=== PATIENT | male | born 1945 | race Caucasian/White ===

== ENCOUNTER 2023-01-31 08:42 | Outpatient (CLI) | payer MEDICARE, SELFPAY | END 2023-01-31 08:43 | disposition home or self-care (01) | LOC: ANHLAB 08:51 | PROVIDERS: Visit Provider Nurse Practitioner Family | DX: R53.83 Other fatigue (principal) | CPT/HCPCS: 36415; 82607 ==

== ENCOUNTER 2023-03-03 08:04 | Outpatient (CLI) | payer MEDICARE, SELFPAY ==
--- NOTE | 2023-03-13 17:25 | WPDHOMESLEEP ---
Sleep Study - Home Unattended Date of Study: 03/03/23 Ordering Provider: Damir Mccarty APRN Interpreting Provider: Ericka Coon MD Home Sleep Study Type: Watch PAT Height: 1.78 m Weight: 133.81 kg Body Mass Index: 42.3 Neck Circumference (inches): 17 [place]: 15 Reason for Sleep Study Hypersomnolence Sleep History Placido Meng is a 77-year-old man with hypersomnolence for the last 12 years. His medical comorbidities include hypertension, chronic kidney disease, chronic thromboembolic disease, history of nephrectomy and prostate cancer. He occasionally awakens from sleep short of breath. He has a history of blood clots in his left leg. The left leg swells during the day. At night when the of leg rests, he has frequent trips to the bathroom. He has used a mouth guard in the past. He occasionally wakes at night with heartburn, belching or coughing.??He frequently snores and it is frequently loud enough that others complain about it. He rarely has difficulty sleeping when he has a cold. He Rarely wakes up gasping for breath during the night. He occasionally has breathing problems at night. He occasional sweats excessively at night. He rarely notices his heart pounding or beating irregularly during the night. He frequently falls asleep during the day. He occasionally falls asleep involuntarily, rarely falls asleep while driving. He never experiences loss of muscle tone with strong emotion. He rarely has daytime difficulties due to excessive sleepiness. He never feels paralyzed on waking or falling asleep. He occasionally has vivid dreamlike scenes upon awakening or falling asleep. He never feels afraid to go to sleep. He occasionally has nightmares. He occasionally recalls his dreams. He rarely has thoughts racing through his mind. He rarely feels sad or depressed. He occasionally notices parts of his body jerk, occasioanlly has a Charley horse in his legs at night. He occasionally kicks during the night. He rarely feels crawling or aching feelings in his legs. He occasionally feels leg pain at night. He occasionally grinds his teeth, rarely has morning jaw pain. He occasionally feels bothered by pain during the day, occasionally awakened by pain during the night. Heoccasionally wakes up feeling stiff in the morning, occasionally wakes feeling sore or achy in the morning. Occasionally he awakens with pain in his neck, spine, or joints. Normal bedtime is midnight to 1:00 a.m., taking a variable amount of time to fall asleep depending on how fast his mind is racing. He typically wakes up between 2 and 4 times during the night to go to the bathroom. He is able to return to sleep within 5 minutes. His wake time is between 8:00 a.m. and 9:00 a.m.. He maintains the same schedule on weekends. He estimates getting 6 hours of sleep at night. He is retired, he plays golf 3 days a week. He takes naps in the afternoon or evening. A short nap lasting 10-15 minutes may be refreshing. Most of the time he feels good upon waking. He feels better in the afternoon or evening compared to the morning. Habits:??Tobacco: Never Caffeine: 3-[address] Clayton per day. Alcohol: One beer after a game of golf on some days out of the week. Recreational substances: none PMFSH Past Medical History Medical History Chronic kidney disease (CKD) stage G3b/A1, moderately decreased glomerular filtration rate (GFR) between 30-44 mL/min/1.73 square meter and albuminuria creatinine ratio less than 30 mg/g Chronic thromboembolic disease Class 3 severe obesity due to excess calories with body mass index (BMI) of 40.0 to 44.9 in adult Embolism and thrombosis of unspecified artery Essential hypertension Hyperlipidemia, unspecified Personal history of malignant neoplasm of prostate Surgical History Surgical History History of nephrectomy
[2023-03-16 12:37] VITALS: BMI 42.3
== END 2023-03-03 12:00 | disposition home or self-care (01) ==
PROVIDERS: Visit Provider Nurse Practitioner Family
DX: G47.10 Hypersomnia, unspecified (principal); G47.33 Obstructive sleep apnea (adult) (pediatric); G47.31 Primary central sleep apnea
CPT/HCPCS: 95800

== ENCOUNTER 2023-04-22 08:23 | Outpatient (CLI) | payer MEDICARE, SELFPAY ==
--- NOTE | 2023-05-06 16:03 | WPDSLEEPSTUD ---
Sleep Study Date of Study: 04/22/23 Ordering Provider: PAUL Alexander Interpreting Physician: Gretchen Pino DO Sleep Study Type: BiPAP Titration Height: 1.75 m Weight: 138.799 kg Body Mass Index: 45.1 Neck Circumference (inches): 16.75 [place]: 11 Reason for Sleep Study The patient had a WatchPAT home sleep test on 03/03/2023 that showed an overall AHI of 54.6 and a central apnea index of 18.1 with desaturation down to 77%. Not a candidate for AutoPAP. Sleep History Placido Meng is a 78-year-old man with hypersomnolence for the last 12 years.? His medical comorbidities include hypertension, chronic kidney disease, chronic thromboembolic disease, history of nephrectomy and prostate cancer.? He occasionally awakens from sleep short of breath.? He has a history of blood clots in his left leg.? The left leg swells during the day.? At night when the of leg rests, he has frequent trips to the bathroom.? He has used a mouth guard in the past.? He occasionally wakes at night with heartburn, belching or coughing.??He frequently snores and it is frequently loud enough that others complain about it.? He rarely has difficulty sleeping when he has a cold.? He ? Rarely wakes up gasping for breath during the night. He? occasionally has breathing problems at night. He occasional sweats excessively at night. He? rarely notices his heart pounding or beating irregularly during the night. He? frequently falls asleep during the day. He? occasionally falls asleep involuntarily,? rarely falls asleep while driving. He never experiences loss of muscle tone with strong emotion. He? rarely has daytime difficulties due to excessive sleepiness.? He never feels paralyzed on waking or falling asleep.? He occasionally has vivid dreamlike scenes upon awakening or falling asleep.? He never feels afraid to go to sleep.? He occasionally has nightmares. He occasionally recalls his dreams. He rarely has thoughts racing through his mind. He rarely feels sad or depressed. ? He? occasionally notices parts of his body jerk, occasioanlly has a Charley horse in his legs at night. He occasionally kicks during the night. He rarely feels crawling or aching feelings in his legs. He occasionally feels leg pain at night. He occasionally grinds his teeth, rarely has morning jaw pain. He occasionally feels bothered by pain during the day, occasionally awakened by pain during the night. Heoccasionally wakes up feeling stiff in the morning, occasionally wakes feeling sore or achy in the morning.? Occasionally he awakens with pain in his neck, spine, or joints. Normal bedtime is midnight to 1:00 a.m., taking a variable amount of time to fall asleep depending on how fast his mind is racing.? He typically wakes up between 2 and 4 times during the night to go to the bathroom.? He is able to return to sleep within 5 minutes.? His wake time is between 8:00 a.m. and 9:00 a.m..? He maintains the same schedule on weekends.? He estimates getting 6 hours of sleep at night.? ? He is retired, he plays golf 3 days a week.? He takes naps in the afternoon or evening.? A short nap lasting 10-15 minutes may be refreshing.? Most of the time he feels good upon waking.? He feels better in the afternoon or evening compared to the morning. Habits:??Tobacco: Never? ? ? Caffeine: 3-[address] Clayton per day.? ? Alcohol: One beer after a game of golf on some days out of the week. ? ? Recreational substances: none PMFSH Past Medical History Medical History Chronic kidney disease (CKD) stage G3b/A1, moderately decreased glomerular filtration rate (GFR) between 30-44 mL/min/1.73 square meter and albuminuria creatinine ratio less than 30 mg/g Chronic thromboembolic disease Class 3 severe obesity due to excess calories with body mass index (BMI) of 40.0 to 44.9 in adult Embolism and thrombosis of unspecified artery Essential hypertension Hyperlipidemia, unspecified [place]
[2023-05-06 16:44] VITALS: BMI 45.1
== END 2023-04-23 07:08 | disposition home or self-care (01) ==
LOC: ANHCSM 08:26
PROVIDERS: Visit Provider Physician Assistant
DX: G47.33 Obstructive sleep apnea (adult) (pediatric) (principal); G47.31 Primary central sleep apnea; I48.91 Unspecified atrial fibrillation
CPT/HCPCS: 95811